=== PATIENT | male | born 1950 | race Two or more races ===

== ENCOUNTER 2025-03-09 12:14 | Emergency (ER) | payer MEDICARE, SELFPAY ==
[2025-03-09 12:21] VITALS: BMI 24.3
[2025-03-09 12:38] VITALS: BP 169/84; PULSE 82; RESP 19; TEMP 36.7; O2SAT 98
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
[2025-03-09] MEDS: ACETAMINOPHEN 500 MG TABLET 1000 MG PO (13:38)
== END 2025-03-09 16:14 | disposition home or self-care (01) ==
LOC: SERX 14:59
PROVIDERS: Emergency Provider Family Medicine
DX: S13.4XXA Sprain of ligaments of cervical spine, initial encounter (principal); R07.9 Chest pain, unspecified; V43.52XA Car driver injured in collision with other type car in traffic accident, initial encounter
CPT/HCPCS: 71046; 72040; 99282; A9270